=== PATIENT | male | born 1965 | race Caucasian/White ===

== ENCOUNTER 2020-09-18 10:27 | Inpatient (IN) | payer OTHER ==
[~2020-09-18] VITALS: Ht 167.6 cm; Wt 78.0 kg
--- NOTE | 2020-09-18 10:45 | NUR ---
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 PTE INDICA SER COVID POSITIVO. SE MIDEN SV, SE UBICA EN MARIZA EN SECCION K PARA EVALUACION MEDICA.
--- NOTE | 2020-09-18 11:51 | NUR ---
SE EJECUTA ORDEN MEDICA EN RICHEY TOTRALIDAD, SE ORIENTA A PACIENTE SOBRE USO Y EFECTOS DE LOS MEDICAMENTOS A SER ADMINISTRADOS. PACIENTE QUEDA PENDIENTE DE REVALUACION MEDICA. SE MANTIENE EN OBSERVACION
== END 2020-09-25 13:20 | disposition home or self-care (01) | DRG 177 ==
LOC: ER 10:27 → MEDJ 18:46
PROVIDERS: ADMIT Internal Medicine; ATTEND Internal Medicine
PROC: 8E0ZXY6 Isolation (ICD-10-PCS; principal; 2020-09-18)
PROC: 4A033R1 Measurement of Arterial Saturation, Peripheral, Percutaneous Approach (ICD-10-PCS; 2020-09-18)
PROC: CB2YYZZ Tomographic (Tomo) Nuclear Medicine Imaging of Respiratory System using Other Radionuclide (ICD-10-PCS; 2020-09-18)
PROC: 4A12X4Z Monitoring of Cardiac Electrical Activity, External Approach (ICD-10-PCS; 2020-09-18)
PROC: XW033E5 Introduction of Remdesivir Anti-infective into Peripheral Vein, Percutaneous Approach, New Technology Group 5 (ICD-10-PCS; 2020-09-19)
PROC: 3E0F7SF Introduction of Other Gas into Respiratory Tract, Via Natural or Artificial Opening (ICD-10-PCS; 2020-09-22)
DX: U07.1 COVID-19 (principal); J12.82 Pneumonia due to coronavirus disease 2019; R09.02 Hypoxemia; Z20.822 Contact with and (suspected) exposure to COVID-19

== ENCOUNTER 2024-08-04 05:30 | Day surgery (SDC) | payer OTHER ==
[2024-07-28 09:25] VITALS: BP 117/78
[~2024-08-04] VITALS: Ht 167.6 cm; Wt 78.5 kg
[~2024-08-04 05:30] MED LIST: CANDESARTAN CILE8 MG; LIPITOR40 M1 PO; MULTIVITAMINAS
[2024-08-04] MEDS ORDERED: BUPIVACAINE LIPOSOME/PF 266 MG/20 ML VIAL IJ ONE (09:00)
[2024-08-04] MEDS ORDERED: CEFTRIAXONE SODIUM 2,000 MG VIAL IV ONE (09:00)
[2024-08-04] MEDS ORDERED: METRONIDAZOLE/SODIUM CHLORIDE 500 MG/100 ML PIGGYBACK IV ONE (09:00)
[2024-08-04] MEDS ORDERED: ENOXAPARIN SODIUM 40 MG/0.4 ML SYRINGE SUBCUTANEO ONE (09:00)
[2024-08-04] MEDS ORDERED: BUPIVACAINE HCL 30 ML VIAL IJ ONE (09:00)
[2024-08-04] MEDS ORDERED: NEURONTIN300 MG PO (10:09)
[2024-08-04] MEDS ORDERED: PERCOCET 5-3251 EACH PO (10:09)
[2024-08-04] MEDS ORDERED: POLY119PG PO (10:10)
[2024-08-04] MEDS ORDERED: CELEBREX200MG PO (10:10)
[2024-08-04] MEDS ORDERED: MORPHINE SULFATE 4 MG/ML VIAL IV ONE (10:35)
== END 2024-08-04 15:55 | disposition home or self-care (01) ==
LOC: CIR.AMB 05:30
PROVIDERS: ATTEND Surgery
DX: K40.90 Unilateral inguinal hernia, without obstruction or gangrene, not specified as recurrent (principal); I10 Essential (primary) hypertension; E78.00 Pure hypercholesterolemia, unspecified
CPT/HCPCS: 49650; C1781